=== PATIENT | female | born 1990 | race Caucasian/White ===

== ENCOUNTER → 2018-02-22 11:00 | Outpatient (CLI) | payer BC, SELFPAY ==
[2018-02-23 14:41] LABS: HSV 2 IGG AB 8.44 index (< 0.90); HSV1IGG < 0.90 index (< 0.90)
== END ==
PROVIDERS: PCP Student in an Organized Health Care Education/Training Program; Visit Provider Obstetrics & Gynecology
DX: N60.89 Other benign mammary dysplasias of unspecified breast (principal)
CPT/HCPCS: 36415; 86695; 86696; 86762

== ENCOUNTER → 2018-08-03 16:38 | Outpatient (CLI) | payer BC, SELFPAY ==
[2018-08-03 16:51] LABS: Bacteria Urine None Seen; RBC Urine None Seen (0-5/HPF)
[2018-08-03 18:06] LABS: Appearance Urine UA CLEAR; Bilirubin Urine UA NEGATIVE (NEGATIVE); Color Urine UA YELLOW; Glucose Urine UA NEGATIVE (Negative); Ketones Urine UA NEGATIVE (NEGATIVE); Leukocyte Esterase Urine UA NEGATIVE (NEGATIVE); Nitrite Urine UA NEGATIVE (Negative); Occult Blood Urine UA NEGATIVE (Negative); Protein Urine UA NEGATIVE (Negative); Specific Gravity Urine UA <=1.005 (1.000-1.035); Urobilinogen Urine UA 0.2 E.U./dL (0.2)
[2018-08-03 18:14] LABS: Culture Indicated Urine Cult Not Indicated; Squamous Epithelial Cell Urine 0-1 /HPF; WBC Urine 0-1/HPF (0-5/HPF)
== END ==
PROVIDERS: Visit Provider Obstetrics & Gynecology
DX: O26.899 Other specified pregnancy related conditions, unspecified trimester (principal); R10.9 Unspecified abdominal pain; Z3A.01 Less than 8 weeks gestation of pregnancy
CPT/HCPCS: 36415; 81001; 84702

== ENCOUNTER → 2018-08-05 12:13 | Outpatient (CLI) | payer BC, SELFPAY ==
[2018-08-05 14:44] LABS: HCG Quantitative /Beta subunit 5117.2 mIU/mL
== END ==
PROVIDERS: Visit Provider Obstetrics & Gynecology
DX: O26.899 Other specified pregnancy related conditions, unspecified trimester (principal); R10.9 Unspecified abdominal pain; Z3A.01 Less than 8 weeks gestation of pregnancy
CPT/HCPCS: 36415; 84702

== ENCOUNTER → 2018-09-06 16:15 | Outpatient (CLI) | payer BC, SELFPAY ==
[2018-09-06 17:31] LABS: Add Manual Diff / Slide Review NO; Basophils Absolute Auto 0 /uL (0-100); Basophils Percent Auto 0.4 % (0-2); Eosinophils Absolute Auto 100 /uL (0-450); Eosinophils Percent Auto 0.7 % (2-4); Hematocrit 40.1 % (36-46); Hemoglobin 13.1 g/dL (12.0-16.0); Lymphocytes Absolute Auto 2000 /uL (1100-4500); Lymphocytes Percent Auto 26.6 % (25-40); Mean Corpuscular HGB Conc 32.6 % (30-36); Mean Corpuscular Hemoglobin 27.7 PG (26-34); Mean Corpuscular Volume 84.9 fL (80-100); Monocytes Absolute Auto 600 /uL (0-900); Monocytes Percent Auto 7.6 % (3-14); Neutrophils Absolute Auto 4900 /uL (1500-7000); Neutrophils Percent Auto 64.7 % (50-75); Platelet Count 284 X10^3/uL (150-400); Red Blood Cell Count 4.72 X10^6/uL (4.0-5.2); White Blood Cell Count 7.5 X10^3/uL (4.5-11.0)
[2018-09-06 17:59] LABS: Appearance Urine UA CLEAR; Bilirubin Urine UA NEGATIVE (NEGATIVE); Color Urine UA YELLOW; Glucose Urine UA NEGATIVE (Negative); Ketones Urine UA TRACE (NEGATIVE); Leukocyte Esterase Urine UA NEGATIVE (NEGATIVE); Nitrite Urine UA NEGATIVE (Negative); Occult Blood Urine UA 1+ (Negative); Protein Urine UA NEGATIVE (Negative); Specific Gravity Urine UA >=1.030 (1.000-1.035); Urobilinogen Urine UA 0.2 E.U./dL (0.2); pH Urine UA 5.5 (4.5-8.0)
[2018-09-06 18:40] LABS: Hepatitis B Surface Antigen NEGATIVE s/c (NEGATIVE)
[2018-09-06 19:07] LABS: HIV 1 and 2 Antibody NEGATIVE (NEGATIVE); Hep C Virus Ab w/Reflex Quant NEGATIVE s/c (NEGATIVE)
[2018-09-09 23:04] LABS: RPR Screen Nonreactive (Nonreactive)
== END ==
PROVIDERS: Visit Provider Obstetrics & Gynecology
DX: Z34.91 Encounter for supervision of normal pregnancy, unspecified, first trimester (principal)
CPT/HCPCS: 36415; 80055; 81003; 86703; 86787; 86803; 86850; 86900; 86901; 87086

== ENCOUNTER → 2018-11-09 16:23 | Outpatient (CLI) | payer BC, SELFPAY ==
[2018-11-14 11:53] LABS: AFP, Serum 59.7 ng/mL; Calc Gestational Age 18.6; Cigarette Smoker N; Donated Egg NOT GIVEN; Donor Egg Age NOT GIVEN; Inhibin A, Dimeric 138 pg/mL; Maternal Weight 152 lbs; Number of Fetuses NOT GIVEN; Previous Pregnancy Down Syndro NOT GIVEN; hCG, MoM 1.78; hCG, Serum 39.6 IU/mL
== END ==
PROVIDERS: PCP Student in an Organized Health Care Education/Training Program; Visit Provider Obstetrics & Gynecology
DX: Z34.02 Encounter for supervision of normal first pregnancy, second trimester (principal)
CPT/HCPCS: 36415; 82105; 82677; 84702; 86336

== ENCOUNTER → 2018-11-23 10:10 | Outpatient (CLI) | payer BC, SELFPAY ==
--- NOTE | 2018-11-23 10:11 | DI.US.S_ITS ---
PROCEDURE: US OB >= 14 WEEKS FETUS INDICATIONS: ANATOMY SURVEY OUTSIDE/PRIOR DATING DATA: Last menstrual period (LMP): 07/03/18. LMP-based estimated date of delivery (JULIA): 04/08/19. First dating scan (date and location): 09/06/18. Estimated date of delivery (JULIA) from first dating scan: 04/07/[address] Sandhu. TECHNIQUE: Real-time scanning was performed of the fetus, with image documentation and biometric measurements. Endovaginal scanning: Not necessary for this study COMPARISON: [facility], , OB >= 14 WEEKS FETUS, 11/09/2018, 17:00. FINDINGS: General: A single living intrauterine gestation is present. Presentation: Vertex. Placenta: Placental position is posterior, without previa. Amniotic fluid index: 14.3 cm, normal range is 5-24 cm. heart rate: 143 beats per minute. Maternal cervical canal: 4.0 cm long. Normal lower limit is 2.5 cm. biometrics: Biparietal diameter: 5.0 cm, 21 weeks 2 days Head circumference: 190 cm, 21 weeks 2 days Abdominal circumference: 155 cm, 20 weeks 4 days Femur length: 3.4 cm, 20 weeks 6 days Estimated gestational age from initial scan: 20 weeks 5 days Composite gestational age from present scan: 21 weeks 0 days Estimated weight and percentile: 378 g, 50th percentile Measurement variability for biometric dating: +/- 7 days from 14 weeks to 15 weeks 6 days gestation, +/- 10 days from 16 weeks to 21 weeks 6 days gestation, +/- 2 weeks from 22 weeks to 27 weeks 6 days gestation, +/- 3 weeks for 28 weeks gestation or later. weight reference: 4500 g or EFW >90/95% is considered macrosomia or large for gestational age. EFW <10% is small for gestational age. EFW 5% or less is considered intra-uterine growth restriction. Anatomic survey: Neuro: Ventricles are non-dilated at less than 10 mm. Cisterna magna is normal at 3-11 mm. Cerebellum is normal in size and morphology. Nuchal skin fold: Normal at less than 6 mm between 14-21 weeks gestational age. Face: Nose and lips, facial profile are normal. Spine: No evidence for spina bifida. Heart: 4-chambered heart is present, with normal ventricular outflow tracts. Diaphragm: Diaphragm is intact. Stomach: Left-sided stomach is present. Kidneys: No hydronephrosis. Normal is less than 5 mm in 2nd trimester, less than 7 mm in 3rd trimester. Cord: 3-vessel cord has orthotopic insertion. Bladder: Normal in size. Extremities: All 4 extremities identified. IMPRESSION: Appropriate interval growth, no anomaly seen. The delivery date is projected to be centered on 04/05/19. Dictated by: Taj Santiago M.D. on 11/23/2018 at 12:44 Approved by: Taj Santiago M.D. on 11/23/2018 at 12:47
== END ==
PROVIDERS: PCP Student in an Organized Health Care Education/Training Program; Visit Provider Obstetrics & Gynecology
DX: Z34.02 Encounter for supervision of normal first pregnancy, second trimester (principal); Z3A.20 20 weeks gestation of pregnancy
CPT/HCPCS: 76811

== ENCOUNTER → 2018-12-21 11:10 | Outpatient (CLI) | payer BC, SELFPAY ==
[2018-12-21 13:22] LABS: Hematocrit 35.1 % (36-46); Hemoglobin 11.4 g/dL (12.0-16.0)
[2018-12-21 13:31] LABS: GTT (PREG) 1 Hour PP 50gm Dose 115 mg/dL (76-139)
== END ==
PROVIDERS: PCP Student in an Organized Health Care Education/Training Program; Visit Provider Obstetrics & Gynecology
DX: Z34.02 Encounter for supervision of normal first pregnancy, second trimester (principal); Z3A.23 23 weeks gestation of pregnancy
CPT/HCPCS: 36415; 82950; 85014; 85018

== ENCOUNTER 2019-02-16 15:47 | Observation (INO) | payer OTHER, BC, SELFPAY ==
[2019-02-16 16:26] LABS: Add Manual Diff / Slide Review NO; Basophils Absolute Auto 0 /uL (0-100); Basophils Percent Auto 0.5 % (0-2); Eosinophils Absolute Auto 0 /uL (0-450); Eosinophils Percent Auto 0.2 % (2-4); Hematocrit 35.3 % (36-46); Hemoglobin 12.1 g/dL (12.0-16.0); Lymphocytes Absolute Auto 2400 /uL (1100-4500); Lymphocytes Percent Auto 24.5 % (25-40); Mean Corpuscular HGB Conc 34.3 % (30-36); Mean Corpuscular Hemoglobin 28.8 PG (26-34); Monocytes Absolute Auto 700 /uL (0-900); Monocytes Percent Auto 7.7 % (3-14); Neutrophils Absolute Auto 6400 /uL (1500-7000); Neutrophils Percent Auto 67.1 % (50-75); Platelet Count 265 X10^3/uL (150-400); Red Blood Cell Count 4.21 X10^6/uL (4.0-5.2); Red Cell Distribution Width 12.6 % (11.6-14.8); White Blood Cell Count 9.6 X10^3/uL (4.5-11.0)
[2019-02-16 16:37] LABS: Aspartate Aminotransferase 17 IU/L (14-36); Blood Urea Nitrogen 8 mg/dL (7-17); Estimated Glomerular Filt Rate > 60.0 mL/min (>60); Uric Acid 3.4 mg/dL (2.5-6.2)
[2019-02-16 17:04] LABS: RBC Urine None Seen (0-5/HPF)
[2019-02-16 17:05] LABS: Appearance Urine UA SL CLOUDY; Bilirubin Urine UA NEGATIVE (NEGATIVE); Color Urine UA YELLOW; Glucose Urine UA NEGATIVE (Negative); Ketones Urine UA NEGATIVE (NEGATIVE); Leukocyte Esterase Urine UA 1+ (NEGATIVE); Nitrite Urine UA NEGATIVE (Negative); Occult Blood Urine UA NEGATIVE (Negative); Protein Urine UA NEGATIVE (Negative); Specific Gravity Urine UA <=1.005 (1.000-1.035); Urobilinogen Urine UA 0.2 E.U./dL (0.2)
[2019-02-16] MEDS: NIFEdipine 10 MG CAPSULE PO ×4 (17:19→18:22)
[2019-02-16 17:27] LABS: Bacteria Urine Many (>30); Culture Indicated Urine Cult Not Indicated; Squamous Epithelial Cell Urine 5-10 /HPF (0-5/HPF); WBC Urine 5-10/HPF (0-5/HPF)
== END 2019-02-16 19:10 | disposition home or self-care (01) ==
LOC: LABOR 15:50
PROVIDERS: Admitting Provider Obstetrics & Gynecology; PCP Student in an Organized Health Care Education/Training Program; Visit Provider Obstetrics & Gynecology
DX: O26.893 Other specified pregnancy related conditions, third trimester (principal); Z3A.32 32 weeks gestation of pregnancy; R42 Dizziness and giddiness; R03.0 Elevated blood-pressure reading, without diagnosis of hypertension
CPT/HCPCS: 36415; 59025; 59050; 81001; 84112; 84450; 84550; 85025; G0378; G0379

== ENCOUNTER 2019-02-17 12:11 | Observation (INO) | payer OTHER, BC, SELFPAY ==
[2019-02-17 14:55] LABS: Appearance Urine UA CLEAR; Bilirubin Urine UA NEGATIVE (NEGATIVE); Color Urine UA YELLOW; Glucose Urine UA NEGATIVE (Negative); Ketones Urine UA 1+ (NEGATIVE); Leukocyte Esterase Urine UA NEGATIVE (NEGATIVE); Nitrite Urine UA NEGATIVE (Negative); Occult Blood Urine UA NEGATIVE (Negative); Protein Urine UA NEGATIVE (Negative); Urobilinogen Urine UA 0.2 E.U./dL (0.2)
[2019-02-17 15:13] LABS: Bacteria Urine Moderate (10-30); RBC Urine 0-1/HPF (0-5/HPF); Squamous Epithelial Cell Urine 1-5 /HPF (0-5/HPF); WBC Urine 0-1/HPF (0-5/HPF); pH Urine UA 5.5 (4.5-8.0)
[2019-02-17 15:14] LABS: Culture Indicated Urine Cult Not Indicated
[2019-02-17 16:11] LABS: Fetal Fibronectin Negative
--- NOTE | 2019-02-17 17:28 | PM.OBTRLD ---
Visit Information Visit Information Date of evaluation: 02/17/19 Primary OB Provider: Ning Sandhu On-call OB Provider: Aspen Andrade Reason for Evaluation: Yes rule out labor Vital Signs Vital Signs: 131/83 -> 124/83, HR 100, T 36.6C PFSH Social History Smoking Status: Never smoker Social History Smoking Status: Never smoker Review of Systems Cardiovascular Cardiovascular: Reports system reviewed; no additional complaints, except as documented Respiratory Respiratory: Reports system reviewed and no additional complaints, except as documented Gastrointestinal Gastrointestinal: Reports system reviewed and no additional complaints, except as documented Genitourinary Genitourinary: Reports as per HPI Exam Vital Signs (past 8 hours): 113-131/74-85, HR 90s-low 100s Narrative Exam Narrative: Patient is a 28yo @33.0 a/w symptomatic ctx x2 overnight, and q10 within the past hour. She reports that these are painful tightenings/cramps in the lower abdomen, denies VB, LOF, decreased movement, or any other symptoms or complaints. She was admitted yesterday with contractions and with elevated BPs as measured at work at the [facility], [place], s/p negative evaluation for preeclampsia. She received 4x PO 10mg nifedipine and 0.25 subq terbutaline during yesterday's visit, which she reports caused nausea and vomiting overnight. She reports increased urinary urgency this AM, though no dysuria or hematuria. She denies any other complaints obstetrical or otherwise, and reports an otherwise uncomplicated . FHR cat 1, reactive. Baseline 130. ctx irregular. External Female Exam: external appearance normal Speculum Exam - Vagina: normal appearance of the vagina and normal vaginal discharge Bimanual Exam- Vagina & Uterus: normal bimanual exam OB/External & Speculum: external exam normal Manual OB Exam: other (closed/long cervix) Objective Labs Labs: Laboratory Results - last 24 hr 02/17/19 02/17/19 14:05 14:25 Urine Color Yellow Urine Appearance Clear Urine pH 5.5 Ur Specific [place] 1.020 Urine Protein Negative Urine Glucose (UA) Negative Urine Ketones 1+ H Urine Occult Blood Negative Urine Nitrate Negative Urine Bilirubin Negative Urine Urobilinogen 0.2 Ur Leukocyte Esterase Negative Urine RBC 0-1/hpf Urine WBC 0-1/hpf Ur Squamous Epith Cells 1-5 /hpf Urine Bacteria Moderate (10-30) H Ur Culture Indicated? Cult not indicated Fibronectin Negative Evaluation Evaluation Laboratory results: Laboratory Tests 02/17/19 02/17/19 14:05 14:25 Urine Color Yellow Urine Appearance Clear Urine pH 5.5 Ur Specific [place] 1.020 Urine Protein Negative Urine Glucose (UA) Negative Urine Ketones 1+ H Urine Occult Blood Negative Urine Nitrate Negative Urine Bilirubin Negative Urine Urobilinogen 0.2 Ur Leukocyte Esterase Negative Urine RBC 0-1/hpf Urine WBC 0-1/hpf Ur Squamous Epith Cells 1-5 /hpf Urine Bacteria Moderate (10-30) H Ur Culture Indicated? Cult not indicated Fibronectin Negative Diagnosis, Plan/Disposition Plan/Disposition Plan: This patient does not appear to be in labor, with irregular ctx, a long and closed cervix, and a negative FFN. She does not appear to have a UTI, and was counselled on PO hydration. Signs of labor and preeclampsia were discussed and the patient vocalized understanding, and she was discharged home. OB Disposition: home
== END 2019-02-17 16:30 | disposition home or self-care (01) ==
PROVIDERS: Obstetrics & Gynecology; Admitting Provider Obstetrics & Gynecology; PCP Student in an Organized Health Care Education/Training Program; Visit Provider Obstetrics & Gynecology
DX: O47.03 False labor before 37 completed weeks of gestation, third trimester (principal); Z3A.32 32 weeks gestation of pregnancy
CPT/HCPCS: 59025; 59050; 81001; 82731; G0378; G0379

== ENCOUNTER → 2019-03-15 16:13 | Outpatient (CLI) | payer OTHER, BC, SELFPAY ==
[2019-03-16 12:46] LABS: Strep Grp B PCR NEG for Grp B Strep
== END ==
PROVIDERS: PCP Student in an Organized Health Care Education/Training Program; Visit Provider Obstetrics & Gynecology
DX: Z34.03 Encounter for supervision of normal first pregnancy, third trimester (principal); Z36.85 Encounter for antenatal screening for Streptococcus B; Z3A.36 36 weeks gestation of pregnancy
CPT/HCPCS: 87653

== ENCOUNTER 2019-03-28 14:33 | Outpatient (CLI) | payer OTHER, BC, SELFPAY ==
--- NOTE | 2019-03-28 17:19 | PM.OBTRLD ---
Visit Information Visit Information Date of evaluation: 03/28/19 Primary OB Provider: Ning Sandhu On-call OB Provider: Aspen Andrade Reason for Evaluation: Yes rupture of membranes Comments/Additional reasons for admission: This patient is a 28 year at 38+3 presenting because she is not sure if she broke her water has excessive discharge. AmniSure was negative, and she has no other obstetrical complaints. She has an otherwise uncomplicated . Vital Signs Vital Signs: 135/86, 104, temperature 36.5? PFSH Social History Smoking Status: Never smoker Evaluation Evaluation Baseline heart rate: 135 Variability: Average (6-10) monitor accelerations: Present monitor decelerations: Absent Contraction Frequency (minutes): 7 Category of Tracing: I Non-invasive Membranes Rupture Test: negative Diagnosis, Plan/Disposition Plan/Disposition Plan: This patient was evaluated for both status and rupture of membranes. She was found to not be ruptured, with no further leakage in Labor and delivery and negative AmniSure. She had reassuring status and was discharged home per L and D staff with precautions.
== END 2019-03-28 15:17 | disposition home or self-care (01) ==
LOC: OB 03-29 10:49
PROVIDERS: PCP Student in an Organized Health Care Education/Training Program; Visit Provider Obstetrics & Gynecology
DX: Z34.03 Encounter for supervision of normal first pregnancy, third trimester (principal); Z3A.38 38 weeks gestation of pregnancy
CPT/HCPCS: 59025; 84112; G0378; G0379

== ENCOUNTER 2019-04-04 19:45 | Inpatient (IN) | payer OTHER, BC, SELFPAY ==
[2019-04-04] MEDS: miSOPROStoL 25 MCG TABLET VAG (20:57)
[2019-04-04 21:39] LABS: Add Manual Diff / Slide Review NO; Basophils Absolute Auto 0 /uL (0-100); Basophils Percent Auto 0.6 % (0-2); Eosinophils Absolute Auto 0 /uL (0-450); Eosinophils Percent Auto 0.3 % (2-4); Hematocrit 36.2 % (36-46); Hemoglobin 12.2 g/dL (12.0-16.0); Lymphocytes Absolute Auto 2400 /uL (1100-4500); Lymphocytes Percent Auto 28.6 % (25-40); Mean Corpuscular HGB Conc 33.5 % (30-36); Mean Corpuscular Hemoglobin 28.6 PG (26-34); Mean Corpuscular Volume 85.4 fL (80-100); Monocytes Absolute Auto 700 /uL (0-900); Monocytes Percent Auto 8.6 % (3-14); Neutrophils Absolute Auto 5200 /uL (1500-7000); Neutrophils Percent Auto 61.9 % (50-75); Platelet Count 243 X10^3/uL (150-400); Red Blood Cell Count 4.25 X10^6/uL (4.0-5.2); Red Cell Distribution Width 13.4 % (11.6-14.8); White Blood Cell Count 8.5 X10^3/uL (4.5-11.0)
[2019-04-04] MEDS: ZOLPIDEM 5 MG TABLET PO (22:04)
[2019-04-05 06:58] VITALS: BP 121/85
[2019-04-05] MEDS: LACTATED RINGERS 1,000 ML 100 ML IV ×3 (07:27→11:50)
[2019-04-05] MEDS: OXYTOCIN PREMIX 30 UNIT/500 ML PLAST..BAG IV (07:27)
[2019-04-05 07:46] LABS: Appearance Urine UA CLEAR; Bilirubin Urine UA NEGATIVE (NEGATIVE); Color Urine UA YELLOW; Glucose Urine UA NEGATIVE (Negative); Ketones Urine UA NEGATIVE (NEGATIVE); Leukocyte Esterase Urine UA TRACE (NEGATIVE); Nitrite Urine UA NEGATIVE (Negative); Occult Blood Urine UA NEGATIVE (Negative); Protein Urine UA TRACE (Negative); Urobilinogen Urine UA 0.2 E.U./dL (0.2)
[2019-04-05 07:52] LABS: RBC Urine None Seen (0-5/HPF)
[2019-04-05 07:57] LABS: Bacteria Urine Moderate (10-30); Calcium Oxalate Crystals Urine Moderate; Mucus Urine 2+ (Negative); Squamous Epithelial Cell Urine 5-10 /HPF (0-5/HPF); WBC Urine 1-5/HPF (0-5/HPF)
[2019-04-05] MEDS: ONDANSETRON 4 MG/2 ML INJ IV (12:07)
--- NOTE | 2019-04-05 18:42 | PM.OBHP.1 ---
OB HPI Date/Time Date of admission: 04/04/19 Date Patient Seen: 04/05/19 Time Patient Seen: 07:30 History of Present Condition Chief complaint: OBSERVATION OF LABOR : 1 Para: 0 Estimated Date of Delivery: 04/08/19 Estimated Gestational Age (weeks): 39+4 Narrative: Bibiana Rolon is a 28 year old female 1 para 0 at 39-,4/7 weeks gestation who presented last evening for Cytotec cervical ripening. She received 1 dose. Indications Indication for induction OB: maternal discomfort History of Present care: good care, initiated at week # (9), number of visits (11) and pounds weight gain (33) Dating criteria: LMP confirmed by 1st trimester US Ultrasounds: normal 1st trimester US and normal mid trimester US Obstetrical complications: none Medical complications: none Preadmission Labs Blood type: O (+) positive -: Antibody screen: negative, GBS status: negative, HBsAG: negative, HIV: negative and RPR/VDLR: negative -: Chlamydia screen: not detected and Gonorrhea screen: not detected -: Rubella: immune and Varicella: not immune HCT: 35.1 HCAB: negative PAP: Abnormal (ASCUS) Quad screen: Normal Urine: Negative 1 hr GTT: 115 Evaluation Evaluation Baseline heart rate: 150 Variability: Moderate (11-25) monitor accelerations: Present monitor decelerations: Absent Contraction Frequency (minutes): 3 Uterine Contraction Intensity: Moderate Category of Tracing: I Cervical dilation (cm): 2 Cervical effacement (%): 5 station: 0 Laboratory results: Laboratory Tests 04/04/19 04/04/19 04/05/19 21:33 21:33 06:40 WBC 8.5 RBC 4.25 Hgb 12.2 Hct 36.2 MCV 85.4 MCH 28.6 MCHC 33.5 RDW 13.4 Plt Count 243 Neut % (Auto) 61.9 Lymph % (Auto) 28.6 [place] % (Auto) 8.6 Eos % (Auto) 0.3 L Baso % (Auto) 0.6 Neut # (Auto) 5200 Lymph # (Auto) 2400 [place] # (Auto) 700 Eos # (Auto) 0 Baso # (Auto) 0 Urine Color Yellow Urine Appearance Clear Urine pH 6.0 Ur Specific [place] 1.020 Urine Protein Trace H Urine Glucose (UA) Negative Urine Ketones Negative Urine Occult Blood Negative Urine Nitrate Negative Urine Bilirubin Negative Urine Urobilinogen 0.2 Ur Leukocyte Esterase Trace H Urine RBC None seen Urine WBC 1-5/hpf Ur Squamous Epith Cells 5-10 /hpf H Calcium Oxalate Crystal Moderate H Urine Bacteria Moderate (10-30) H Urine Mucus 2+ H Ur Culture Indicated? Culture not indicate Micro UA Comment Blood Type O Positive Antibody Screen Negative PFSH Social History Smoking Status: Never smoker Meds Home Medications and Allergies Home Medications Medication Instructions Recorded Confirmed Type prenat.vits,elham,ahp-kwmj-hxgzw 1 tab PO DAILY 08/31/18 04/05/19 History Double Electric Breast Pump #1 each 10/24/18 04/05/19 Rx hydrocortisone 2.5 % topical cream 1 applictn HI BID-QID PRN #30 gram 03/15/19 04/05/19 Rx with perineal applicator Allergies Allergy/AdvReac Type Severity Reaction Status Date / Time Sulfa (Sulfonamide Allergy Severe throat Verified 08/31/18 09:17 Antibiotics) swells Exam Vital Signs (past 8 hours): Generally: Patient mildly uncomfortable from contractions. Lungs: Clear to auscultation bilaterally Cardiovascular: Regular rate and rhythm Fundal height: 39 cm Estimated weight: 8 lb Extremities: Trace edema, 1+ DTRs Objective Labs Result Diagrams: 04/04/19 21:33 Labs: Laboratory Results - last 24 hr 04/04/19 04/04/19 04/05/19 21:33 21:33 06:40 WBC 8.5 RBC 4.25 Hgb 12.2 Hct 36.2 MCV 85.4 MCH 28.6 MCHC 33.5 RDW 13.4 Plt Count 243 Neut % (Auto) 61.9 Lymph % (Auto) 28.6 [place] % (Auto) 8.6 Eos % (Auto) 0.3 L Baso % (Auto) 0.6 Neut # (Auto) 5200 Lymph # (Auto) 2400 [place] # (Auto) 700 Eos # (Auto) 0 Baso # (Auto) 0 Urine Color Yellow Urine Appearance Clear Urine pH 6.0 Ur Specific [place] 1.020 Urine Protein Trace H Urine Glucose (UA) Negative Urine Ketones Negative Urine Occult Blood Negative Urine Nitrate Negative Urine Bilirubin Negative Urine Urobilinogen 0.2 Ur Leukocyte Esterase Trace H Urine RBC None seen Urine WBC 1-5/hpf Ur Squamous Epith Cells 5-10 /hpf H Calcium Oxalate Crystal Moderate H Urine Bacteria Moderate (10-30) H Urine Mucus 2+ H Ur Culture Indicated? Culture not indicate Micro UA Comment Blood Type O Positive Antibody Screen Negative Assessment and Plan Assessment and Plan Assessment and Plan narrative: Assessment: 28-year-old 1 para 0 at 39-,4/7 weeks gestation status post 1 dose of Cytotec for cervical ripening Favorable cervix Plan: Pitocin augmentation of labor Epidural as necessary Artificial rupture of membranes when able Expected management to spontaneous vaginal delivery Time Spent with Patient Total time spent with greater than 50% in coordination of care (as documented) at patient's floor/unit and/or counseling patient:: 15-24 minutes
--- NOTE | 2019-04-05 19:36 | PM.OBPRVD ---
 Events: Labor Induction Labor & Delivery Delivery date: 04/05/19 Cervical ripening method: per misoprostal protocol Induction method: per pitocin protocol Delivery augmentation: rupture of membranes Delivery monitor: external FHT and external uterine Route of delivery: Episiotomy description: None L&D Laceration Description: Vaginal - 1st Degree Delivery repair: chromic Estimated blood loss (mL): 100 Anesthesia type: Epidural Complications: None Narrative: Patient complete and pushed for 2 hours and 20 minutes. At 7:19 p.m., a live female infant delivered spontaneously over an intact perineum. No nuchal cord. The remainder of the body delivered without difficulty and was placed on mom's abdomen. After 5 minutes, the cord was double clamped and cut. Cord bloods were obtained. Pitocin was given in the IV fluids. At 7:24 p.m., the placenta delivered intact with a three-vessel cord. Fundus was massaged to firm. A first-degree vaginal laceration was repaired with 2 0 chromic in a running interlocking fashion. Hemostasis was achieved. Apgars 9 at 1 minute and 9 at 5 minutes. Estimated blood loss 100 cc. . Epidural analgesia. Mom and infant stable to recovery. Plan for aftercare: To routine care
[2019-04-05] MEDS: ACETAMINOPHEN 325 MG TABLET 650 MG PO (21:14)
[2019-04-05] MEDS: DERMOPLAST SPRAY 20% 60 ML 1 SPRAY TOP (22:45)
[2019-04-06] MEDS: KETOROLAC 30 MG/ML VIAL IV ×3 (00:07→12:31)
[2019-04-06] MEDS: OXYCODONE/ACETAMINOPHEN 5/325 TABLET 1 TAB PO (00:11)
[2019-04-06 05:58] LABS: Hematocrit 32.3 % (36-46); Hemoglobin 10.9 g/dL (12.0-16.0)
[2019-04-06] MEDS: PRENATAL VIT,CALC/IRON/FOLIC 1 TABLET 1 TAB PO (10:23)
[2019-04-06] MEDS: DOCUSATE 100 MG CAPSULE PO (10:24)
[2019-04-06] MEDS: ACETAMINOPHEN 325 MG TABLET 650 MG PO (10:24)
[2019-04-06] MEDS: IBUPROFEN 600 MG TABLET PO (19:43)
[2019-04-07] MEDS: IBUPROFEN 600 MG TABLET PO (06:41)
[2019-04-07] MEDS: PRENATAL VIT,CALC/IRON/FOLIC 1 TABLET 1 TAB PO (08:34)
[2019-04-07] MEDS: DOCUSATE 100 MG CAPSULE PO (08:34)
[2019-04-07] MEDS: OXYCODONE/ACETAMINOPHEN 5/325 TABLET 1 TAB PO (08:34)
--- NOTE | 2019-04-07 10:28 | P.PNOB_ITS ---
Subjective - OB Subjective Patient comments: no complaints [place] baby status: doing well and nursing well [place] feeding status: exclusively breast feeding Date Patient Seen: 04/06/19 Time Patient Seen: 13:30 Exam Vital Signs (past 8 hours): Generally: Patient is sitting up in bed, holding , no acute distress Fundus: Firm at U -1 Extremities: Trace edema, negative [place] Objective Labs Result Diagrams: 04/06/19 05:50 Assessment & Plan Plan day: 1 plan OB: routine care Time Spent With Patient Time: Total time spent is greater than 50% in coordination of care (as documented) at patient's floor/unit and/or counseling patient: Time with patient: 15-24 minutes
--- NOTE | 2019-04-07 10:30 | PM.OBDS.1 ---
Discharge Providers Provider Date of admission: 04/04/19 19:45 Discharge Date: 04/07/19 Primary care physician: Yadira Ha MD Consults: 04/06/19 19:38 Consult to Rn Bariatric Routine Comment: Discharge provider: Ning Sandhu MD Summary Hospital Course Date Patient Seen: 04/07/19 Time Patient Seen: 10:30 Procedures: Cytotec cervical ripening Pitocin induction of labor Artificial rupture of membranes Spontaneous vaginal delivery First-degree laceration repair Hospital Course: Patient was admitted on April 04, 2019 for Cytotec cervical ripening. She received 1 dose. On the morning of April 05, 2019 Pitocin was started. Artificial rupture of membranes was performed. She received an epidural for pain management. She progressed to complete dilation and had a spontaneous vaginal delivery with first-degree laceration and repair. Peripartum Data Infant Delivery Method: Natural Vaginal Laceration description: Vaginal - 1st Degree Episiotomy description: None Procedures: Cytotec cervical ripening Pitocin induction of labor Artificial rupture of membranes Spontaneous vaginal delivery First-degree laceration repair complications: none Status at Discharge Cognitive/behavioral status at discharge: oriented Overall status at discharge: patient is progressing back to baseline Time Spent with Patient Time attestation: Total time spent providing and/or coordinating discharge services: Time spent: Less than 30 minutes Objective Labs Result Diagrams: 04/06/19 05:50 Discharge Plan Discharge orders & Medications Discharge Orders: Discharge (Order); Ordered 04/07/19 Ordered By: Ning Sandhu Prescriptions: No Action (DME) Double Electric Breast Pump Qty: 1 RF: 0 hydrocortisone [Anusol-HC] 2.5 % cream with perineal applicator 1 applictn [place] BID-QID PRN (Reason: hemorrhoids) Qty: 30 RF: 3 prenat.vits,elham,xky-gkdf-fkyiv tablet 1 tab PO DAILY RF: 0 Follow up/Referrals: Yadira Ha MD [Primary Care Provider] - Maru Grewal DO [Physician] - 04/13/19 11:00 am ( Appointment: Please arrive at [facility] at least 10 minutes prior to your appointment time. ) Discharge Data Primary Care Provider: Yadira Ha
[2019-04-07 10:54] VITALS: BP 140/86; PULSE 86; RESP 18; TEMP 36.8
== END 2019-04-07 12:30 | disposition home or self-care (01) | DRG 807 ==
PROVIDERS: Admitting Provider Obstetrics & Gynecology; PCP Student in an Organized Health Care Education/Training Program; Visit Provider Obstetrics & Gynecology
DX: O70.0 First degree perineal laceration during delivery (principal); Z37.0 Single live birth; Z3A.39 39 weeks gestation of pregnancy
CPT/HCPCS: 01967; 36415; 59050; 59200; 59400; 81003; 81015; 85014; 85018; 85025; 86850; 86900; 86901; G0379; J1885; J2405; J2590

== ENCOUNTER → 2019-04-10 15:51 | Outpatient (CLI) | payer OTHER, BC, SELFPAY | PROVIDERS: PCP Student in an Organized Health Care Education/Training Program; Visit Provider Obstetrics & Gynecology | DX: N90.89 Other specified noninflammatory disorders of vulva and perineum (principal) | CPT/HCPCS: 87255 ==

== ENCOUNTER → 2019-04-13 13:24 | Outpatient (CLI) | payer OTHER, BC, SELFPAY | PROVIDERS: PCP Student in an Organized Health Care Education/Training Program; Visit Provider Family Medicine | DX: N39.0 Urinary tract infection, site not specified (principal) | CPT/HCPCS: 87086 ==